=== PATIENT | male | born 2000 | race Caucasian/White ===

== ENCOUNTER 2022-07-25 15:23 | Emergency (ER) | payer OTHER, SELFPAY ==
[2022-07-25] VITALS (10 sets, daily range): BP systolic 132–162; BP diastolic 72–98; PULSE 61–95; RESP 13–23; TEMP 36.8–37.3; O2SAT 99–100; BMI 25.4
--- NOTE | 2022-07-25 15:54 | EDS_ITS ---
HPI History of Present Illness HPI Narrative: Patient presents with left ankle injury that occurred today. Patient states he fell 4 feet out of a lift walking. Patient states he landed on his left ankle. Patient denies any head injury or loss of consciousness area. Patient noticed a deformity over the left ankle. Patient did not attempt to ambulate. Patient describes his pain as burning. Patient states his pain is worse with movement. Patient states it is better with rest. Patient denies any paresthesias or weakness. Chief Complaint: Lower Extremity Injury Informant: patient Occured/Mechanism Mechanism/Context: Yes fall Onset/Context/Timing Onset: Today Context: Sudden Onset Timing: Continuous Quality of Pain: Burning Location: Left ankle Worsened by: Movement Relieved by: Rest Associated Symptoms Associated Symptoms: Negative for Parasthesia, Weakness or Loss of Funtion Narrative Tetanus Immunization: Unknown PFSH PFS Medical History no medical history no medical history Home Medications NK 07/25/22 [History Last Taken Unknown] Allergy/AdvReac Type Severity Reaction Status Date / Time No Known Allergies Allergy Verified 07/25/22 15:24 Surgical History no surgical history no surgical history Social History Smoking Status: Current every day smoker tobacco type: e-cigarettes ROS ROS ED Constitutional Constitutional ED: Denies chills or fever(s) Eyes Eyes: Denies blurry vision or change in vision ENT ENT ED: Denies rhinorrhea or sore throat Cardiovascular Cardiovascular: Denies chest pain or palpitations Respiratory/Chest Respiratory/Chest: Denies cough or dyspnea Gastrointestinal Gastrointestinal: Denies nausea or vomiting Genitourinary Genitourinary ED: Denies dysuria or hematuria Musculoskeletal Musculoskeletal: Denies back pain or neck pain Integumentary Denies abscess or rash Neurologic Neurologic: Denies headache(s) or weakness Allergic/Immunologic Allergic/Immunologic ED: Denies mouth swelling or urticaria EXAM Physical Exam Const Vital Signs: 07/25/22 15:26 07/25/22 16:30 07/25/22 18:04 Temperature 98.2 F Temperature Source Temporal Pulse Rate 71 69 Pulse Rate [1 (Initial Baseline)] Pulse Rate [2] Pulse Rate [3] Respiratory Rate 14 18 13 Respiratory Rate [1 (Initial Baseline)] Respiratory Rate [2] Respiratory Rate [3] Blood Pressure 162/78 H 150/98 H Blood Pressure [1 (Initial Baseline)] Blood Pressure [2] Blood Pressure [3] Blood Pressure Mean 106 115 Pulse Ox 100 99 Oxygen Delivery Method Room Air Room Air Nasal Cannula Oxygen Delivery Method [1 (Initial Baseline)] Oxygen Delivery Method [2] Oxygen Delivery Method [3] Oxygen Flow Rate (L/min) 2 Oxygen Flow Rate (L/min) [1 (Initial Baseline)] Oxygen Flow Rate (L/min) [2] Oxygen Flow Rate (L/min) [3] 07/25/22 18:17 07/25/22 18:19 07/25/22 18:33 Temperature 99.1 F Temperature Source Pulse Rate 61 Pulse Rate [1 (Initial Baseline)] 65 Pulse Rate [2] 78 Pulse Rate [3] 63 Respiratory Rate 16 Respiratory Rate [1 (Initial Baseline)] 22 H Respiratory Rate [2] 23 H Respiratory Rate [3] 18 Blood Pressure 150/98 H Blood Pressure [1 (Initial Baseline)] 150/98 H Blood Pressure [2] 143/85 H Blood Pressure [3] 132/77 H Blood Pressure Mean Pulse Ox 100 Oxygen Delivery Method Nasal Cannula Nasal Cannula Oxygen Delivery Method [1 (Initial Baseline)] Nasal Cannula Oxygen Delivery Method [2] Nasal Cannula Oxygen Delivery Method [3] Nasal Cannula Oxygen Flow Rate (L/min) 2 2 Oxygen Flow Rate (L/min) [1 (Initial Baseline)] 2 Oxygen Flow Rate (L/min) [2] 2 Oxygen Flow Rate (L/min) [3] 2 07/25/22 18:38 07/25/22 18:43 07/25/22 19:03 Temperature Temperature Source Pulse Rate 95 Pulse Rate [1 (Initial Baseline)] Pulse Rate [2] Pulse Rate [3] Respiratory Rate 17 Respiratory Rate [1 (Initial Baseline)] Respiratory Rate [2] Respiratory Rate [3] Blood Pressure 133/77 H Blood Pressure [1 (Initial Baseline)] Blood Pressure [2] Blood Pressure [3] Blood Pressure Mean 95 Pulse Ox 100 Oxygen Delivery Method Room Air Room Air Room Air Oxygen Delivery Method [1 (Initial Baseline)] Oxygen Delivery Method [2] Oxygen Delivery Method [3] Oxygen Flow Rate (L/min) Oxygen Flow Rate (L/min) [1 (Initial Baseline)] Oxygen Flow Rate (L/min) [2] Oxygen Flow Rate (L/min) [3] Positive well nourished and well developed General Appearance ED: well developed and NAD HEENT Reports moist mucous membranes Neck full ROM and supple Extremity Extremity Narrative: There is edema, ecchymosis, and deformity of the left ankle. Range of motion was limited with all motion secondary to pain. Pedal pulses are equal bilaterally. Sensation was intact to light touch in all digits. Capillary refill was less than 2 seconds in all digits. There is no calf tenderness. There is no tenderness over the proximal fibula. Neuro oriented x3, CN's II-XII intact bilaterally, moves all extremities and no sen lukas deficits noted Sensorium / Orientation: alert Motor Exam: strength 5/5 throughout Psych mental status grossly normal MDM MDM MDM Narrative Medical decision making narrative: Patient was given IV fluids. Patient states he does not want any opiate pain medications. Patient was given a tetanus booster. Patient was given a dose of Toradol. X-rays of the left ankle were obtained. There are 2 views. On my interpretation, there is a trimalleolar fracture of the distal fibula, medial malleolus, and posterior malleolus. There is displacement of all the fragments. The talus is displaced posteriorly. There is soft tissue swelling. Radiologist also interpreted the x-rays and agrees. Patient was advised of the need for conscious sedation for reduction of the ankle. I explained the procedure to the patient. Patient was given the opportunity ask questions. He had no further questions. Patient is agreeable for conscious sedation. Patient was placed on continuous cardiac and pulse oximeter monitors. Patient was placed on nasal cannula oxygen. Patient was given a dose of 80 mg of propofol. Patient was sedated. The ankle was reduced. Patient was placed in a well- padded custom made sugar-tong and posterior splint using 3 inch and 4 inch Ortho-Glass. Neurovascular exam was intact after the procedure. Patient woke up. Patient had no episodes of hypoxia or cardiac dysrhythmias during the procedure. Patient tolerated the procedure well. Patient states his pain improved after application of the splint. Repeat ankle x-rays were obtained. There are 2 views. On my interpretation, the fracture fragments are better aligned. There is still some soft tissue swelling. Radiologist also interpreted the x-rays and agrees. Patient was instructed to ice and elevate the left ankle. Patient states he will be traveling back to [place] tomorrow. Patient was instructed to get out of the car every few hours and ambulate on his crutches. Patient was instructed to take ibuprofen or Tylenol as needed for pain. I did offer again to prescribe the patient opiate pain medications. He declined this. Patient states he will follow-up with an orthopedic surgeon when he gets back to [place]. Patient understood and was agreeable with the plan. All questions were answered. Radiography Diagnostic Testing: Clinical Impression(s) from Imaging Studies Ankle X-Ray 07/25/22 16:51 IMPRESSION: Trimalleolar fracture. Ankle dislocation. Electronically Signed: Liu Miranda MD at 17:03 EST , Ankle X-Ray 07/25/22 18:46 IMPRESSION: Improved alignment s/p reduction. Electronically Signed: Liu Miranda MD at 19:18 EST , Procedures Lower Extremity Splints Lower Extremity Splint: Orthoglass, Stirrup and - (Posterior) Splint Fabrication: Fabricated Location: Left Procedural Sedation 1 (Initial Baseline): Consent Signed: Yes Any Problems With Anesthesia: No You/Your family experience fever (hyperthermia) w/anesthesia: No Sedation medication: Propofol Dose: 80 Route: IV Mallampati Score: Class I ASA Classification: I Discharge Plan Triage Chief Complaint: Lower Extremity Injury ED Provider: Jeferson Browning Dx/Rx/DC Orders Clinical Impression: Trimalleolar fracture of left ankle, Fall Instructions: ED Ankle Fracture Prescriptions: No Action NK Primary Care Provider: Care Physician,No Primary Referrals: Care Physician,No Primary [Primary Care Provider] - Activity Restrictions/Additional Instructions: Follow-up with an orthopedic surgeon when you get back to [place]. Keep your leg elevated. Use ice to the area. Disposition Disposition: Home, Self Care
[2022-07-25] MEDS: Ketorolac 30 MG/ML Syringe IV (16:25)
--- NOTE | 2022-07-25 16:51 | RAD_ITS ---
EXAM: XR LEFT ANKLE, 2 VIEWS CLINICAL INDICATION: Injury/Pain TECHNIQUE: Frontal and lateral views of the left ankle. This report was created using [employer] report generation technology. COMPARISON: None. FINDINGS: BONES/JOINTS: Comminuted distal fibular fracture. Fracture of the medial malleolus. Fracture of the posterior malleolus. Medial dislocation of the ankle mortise. No sclerotic or destructive changes observed. SOFT TISSUES: Soft tissue swelling around the ankle. No radiopaque foreign body. RAD/Ankle 2 Views IMPRESSION: Trimalleolar fracture. Ankle dislocation. Electronically Signed: Liu Miranda MD at 17:03 EST ,
[2022-07-25] MEDS: Propofol 200 MG/20 ML Vial IV BOLUS (18:34)
--- NOTE | 2022-07-25 18:46 | RAD_ITS ---
EXAM: XR LEFT ANKLE, 2 VIEWS CLINICAL INDICATION: Ankle fracture, postreduction TECHNIQUE: Frontal and lateral views of the left ankle. This report was created using [employer] report generation technology. COMPARISON: Study done earlier today. FINDINGS: BONES/JOINTS: Trimalleolar fracture. Ankle dislocation. No sclerotic or destructive changes observed. SOFT TISSUES: There is soft tissue swelling . No radiopaque foreign body. OTHER FINDINGS: Fiberglass cast in place. RAD/Ankle 2 Views IMPRESSION: Improved alignment s/p reduction. Electronically Signed: Liu Miranda MD at 19:18 EST ,
== END 2022-07-25 20:05 | disposition home or self-care (01) ==
PROVIDERS: Emergency Provider Emergency Medicine; Visit Provider Emergency Medicine
DX: S82.852A Displaced trimalleolar fracture of left lower leg, initial encounter for closed fracture (principal); F17.210 Nicotine dependence, cigarettes, uncomplicated; W19.XXXA Unspecified fall, initial encounter
CPT/HCPCS: 27822; 73600; 96374; 99285; J7030; A4216